=== PATIENT | female | born 1945 | race Caucasian/White ===

== ENCOUNTER 2024-01-04 15:11 | Observation (INO) ==
[2024-01-04 15:59] LABS: Urine Appearance Clear; Urine Bilirubin Negative (Negative); Urine Blood Negative (Negative); Urine Color Yellow; Urine Glucose Negative (Negative); Urine Ketones Negative (Negative); Urine Nitrite Negative (Negative); Urine Protein Negative (Negative); Urine Specific Gravity 1.022 (1.002-1.030); Urine Urobilinogen Negative (Negative); Urine pH 5.5 (5.0-8.0)
[2024-01-04 17:11] LABS: ABS Basophils 0.1 10^3/uL (0.0-0.1); ABS Eosinophils 0.1 10^3/uL (0.0-0.5); ABS Monocytes 0.6 10^3/uL (0.0-0.9); ABS Neutrophils 4.4 10^3/uL (1.5-7.6); Eosinophil % 1.3 %; Hematocrit 40.1 % (35-45); Hemoglobin 13.4 g/dL (11.5-14.3); Lymphocyte % 16.4 %; Mean Corpuscular Hemoglobin 30.7 pg (27-33); Mean Corpuscular Hgb Conc 33.3 g/dL (31-36); Mean Corpuscular Volume 92.2 fL (80-97); Nucleated Red Blood Cells % 0.1 %/100WBC (0.0-0.8); Platelet Count 312 10^3/uL (150-450); Red Blood Count 4.35 10^6/uL (3.63-4.92); Red Cell Distribution Width 13.5 % (12-17); White Blood Count 6.2 10^3/uL (3.8-11.8)
[2024-01-04 17:20] LABS: Activated Partial Thrombo Time 31.1 seconds (26.0-38.0); INR 0.98 (0.83-1.13)
[2024-01-04 17:46] LABS: Albumin 4.4 g/dL (3.2-5.2); Calcium 9.5 mg/dL (8.6-10.3); Creatinine, Serum 0.7 mg/dL (0.51-0.95); Globulin 2.2 g/dL (2-4); HDL Cholesterol 62.6 mg/dL; Potassium 4.2 mmol/L (3.5-5.0); Total Bilirubin 0.3 mg/dL (0.2-1.0); Total Protein 6.6 g/dL (6.4-8.9); eGFR CKD-EPI 89.6 (>60)
[2024-01-04] MEDS: Iohexol 350 (CONTRAST) 500 ML MDV IV ONE (20:35)
[2024-01-04 22:05] LABS: High Sensitivity Troponin 1 Hr 5 pg/mL (<15)
[2024-01-04] MEDS: Aspirin EC 325 mg TAB.EC PO ONE (23:30)
[2024-01-05] MEDS: Saline NASAL SPRAY 0.65% BTL BOTH NARES SCH (21:54)
[2024-01-05] MEDS: Fluticasone NASAL SPRAY 50MCG 16 gm SPRAY BTL BOTH NARES SCH (21:55)
[2024-01-06 06:54] LABS: ABS Monocytes 0.5 10^3/uL (0.0-0.9); ABS Neutrophils 4.2 10^3/uL (1.5-7.6); Eosinophil % 0.6 %; Hematocrit 37.5 % (35-45); Hemoglobin 12.8 g/dL (11.5-14.3); Lymphocyte % 17.5 %; Mean Corpuscular Hemoglobin 31.4 pg (27-33); Mean Corpuscular Hgb Conc 34.2 g/dL (31-36); Mean Corpuscular Volume 91.8 fL (80-97); Mean Platelet Volume 8.3 fL (7.5-11.2); Platelet Count 269 10^3/uL (150-450); Red Blood Count 4.09 10^6/uL (3.63-4.92); Red Cell Distribution Width 13.2 % (12-17); White Blood Count 5.8 10^3/uL (3.8-11.8)
[2024-01-06 07:05] LABS: Creatinine, Serum 0.59 mg/dL (0.51-0.95); Potassium 4.6 mmol/L (3.5-5.0); eGFR CKD-EPI 93.3 (>60)
[2024-01-06] MEDS: Sulfur Hexaflouride MICROSPHR 25 MG VIAL IV ONE (12:45)
[2024-01-06 13:34] VITALS: BP 132/88
== END 2024-01-06 16:02 | disposition home or self-care (01) ==
LOC: ED 15:11 → EDHOLD 15:11 → SUATTDRO 01-05 00:54 → MEDTELE 01-05 02:29
PROVIDERS: ADMIT Internal Medicine; ATTEND Internal Medicine